=== PATIENT | male | born 1995 ===

== ENCOUNTER 2021-01-21 23:08 | Emergency (ER) | payer SELFPAY ==
[2021-01-21] MEDS ORDERED: Ondansetron 4 MG Tab.DIS ONE (23:30)
[2021-01-21] MEDS: Prochlorperazine 10 MG/2 ML SDV IVPUSH ONE (23:35)
[2021-01-21] MEDS: Ketorolac 60 MG/2 ML SDV IVPUSH ONE (23:35)
--- NOTE | 2021-01-21 23:36 | EDM.PDOC ---
ED HPI GENERAL MEDICAL PROBLEM - General Chief Complaint: Gastrointestinal Problem Stated Complaint: abdominal pain Time Seen by Provider: 01/21/21 23:20 Source of Information: Reports: Patient History Limitations: Reports: No Limitations - History of Present Illness INITIAL COMMENTS - FREE TEXT/NARRATIVE: pt presents to the ER accompanied by father. pt states central abdominal pain he describes as cramping starting approximately 2000 today. he states nausea with one episode of vomiting, denies fever, chills, diarrhea. last meal approximately 1730 of [employer], last fluid was a bottle of water that pt's friend had unused, being stored in a boat for several years. one episode similar to this that went away without intervention earlier this spring. pt remembers meal prior to that occasion was an [employer] truck. no abdominal surgery history. Onset: Today ED ROS GENERAL - Review of Systems Review Of Systems: Comprehensive ROS is negative, except as noted in HPI. ED EXAM, GI/ABD - Physical Exam Exam: See Below Exam Limited By: No Limitations General Appearance: Alert, WD/WN, Mild Distress Respiratory/Chest: No Respiratory Distress, Lungs Clear, Normal Breath Sounds, No Accessory Muscle Use Cardiovascular: Normal Peripheral Pulses, Regular Rate, Rhythm, No Edema, No Murmur GI/Abdominal Exam: Normal Bowel Sounds, Soft, No Organomegaly, No Distention, No Mass, Tender (RUQ tenderness) Extremities: Normal Inspection, Normal Range of Motion, No Pedal Edema, Normal Capillary Refill Neurological: Alert, Oriented, Normal Cognition, Normal Gait, No Motor/Sensory Deficits Psychiatric: Normal Affect, Normal Mood Skin Exam: Warm, Dry, Intact, Normal Color, No Rash Course - Orders/Labs/Meds Orders: Active Orders 24 hr Category Date Time Status C-REACTIVE PROTEIN [CHEM] Stat Lab 01/21/21 23:19 Ordered CBC WITH AUTO DIFF [HEME] Stat Lab 01/21/21 23:18 Ordered COMPREHENSIVE METABOLIC PN,CMP [CHEM] Stat Lab 01/21/21 23:18 Ordered LIPASE [CHEM] Stat Lab 01/21/21 23:19 Ordered Meds: Medications Discontinued Medications Generic Name Dose Route Start Last Admin Trade Name Freq PRN Reason Stop Dose Admin Ketorolac Tromethamine 15 mg 01/21/21 23:19 Ketorolac 60 Mg/2 Ml Sdv IVPUSH 01/21/21 23:20 ONETIME ONE Prochlorperazine Edisylate 10 mg 01/21/21 23:19 Prochlorperazine 10 Mg/2 Ml Sdv IVPUSH 01/21/21 23:20 ONETIME ONE - Radiology Interpretation Free Text/Narrative:: 0010: bedside US of liver and gallbladder shows no fatty infiltrates, distension of gallbladder or gallstones. gallbladder wall thickness not measured. right renal US shows no hydronephrosis. Departure - Departure Time of Disposition: 00:42 Disposition: Home, Self-Care 01 Condition: Good Clinical Impression: Abdominal pain Qualifiers: Abdominal location: generalized Qualified Code(s): R10.84 - Generalized abdominal pain - Discharge Information *PRESCRIPTION DRUG MONITORING PROGRAM REVIEWED*: Not Applicable *COPY OF PRESCRIPTION DRUG MONITORING REPORT IN PATIENT POLLY: Not Applicable Additional Instructions: for pain control you may take 600mg ibuprofen four times a day with 1,000mg tylenol four times a day use your zofran (anti-nausea med) if you feel as you did this evening. during our discussion we decided to forgo the CT scan for a "watch and wait" a [facility]. I [place] concerning symptoms include fever (temp greater than 100.4) with belly pain, bloody diarrhea, vomiting blood among others. if these happen, return to ER [facility]. - Problem List & Annotations (1) Abdominal pain SNOMED Code(s): 51235008 Code(s): R10.9 - UNSPECIFIED ABDOMINAL PAIN Status: Acute Current Visit: Yes Qualifiers: Abdominal location: generalized Qualified Code(s): R10.84 - Generalized abdominal pain - My Orders Last 24 Hours: My Active Orders 01/21/21 23:18 CBC WITH AUTO DIFF [HEME] Stat COMPREHENSIVE METABOLIC PN,CMP [CHEM] Stat 01/21/21 23:19 C-REACTIVE PROTEIN [CHEM] Stat LIPASE [CHEM] Stat - Assessment/Plan Last 24 Hours: My Active Orders 01/21/21 23:18 CBC WITH AUTO DIFF [HEME] Stat COMPREHENSIVE METABOLIC PN,CMP [CHEM] Stat 01/21/21 23:19 C-REACTIVE PROTEIN [CHEM] Stat LIPASE [CHEM] Stat Assessment:: generalized abdominal pain plan/mdm: ED course included cbc and bmp (lab machine for liver enzymes and CRP was not working), toradol and compazine pt stated symptoms of pain and nausea were almost completely resolved. discussion on further testing with CT in light of lab results and through shared decision making, will hold off on further evaluation based on how well pt feels and looks at this time. pt d/c in care of father. return precautions discussed and printed. differentials considered: cholecystitis, choledocholithiasis, kidney stone, gastroenteritis.
== END 2021-01-22 00:50 | disposition home or self-care (01) ==
LOC: LB.ED 23:08
DX: R10.84 Generalized abdominal pain (principal); R11.2 Nausea with vomiting, unspecified
CPT/HCPCS: 36415; 80048; 85025; 96374; 96375; 99284; A9270; J0780; J1885